=== PATIENT | female | born 2000 | race Caucasian/White ===

== ENCOUNTER 2024-01-13 08:11 | Emergency (ER) | payer BC, SELFPAY ==
--- NOTE | 2024-01-13 08:14 | ED.URI ---
HPI - URI/Sore Throat General Chief Complaint: Upper Respiratory Infection Stated Complaint: Sore Throat Time Seen by Provider: 01/13/24 08:14 Source: patient Mode of arrival: ambulatory Limitations: no limitations History of Present Illness HPI Narrative: Adela is a 23-year-old female patient presenting to the clinic today with complaints of sore throat x 3 days. History of strep and mono within the last year. Has seen ENT in the recent past for this. Denies any fever, chills, bodyaches, headache, nausea, or vomiting. MD elicited complaint: sore throat Related Data Home Medications Medication Instructions Recorded Confirmed No Home Medications 01/13/24 01/13/24 Allergies Allergy/AdvReac Type Severity Reaction Status Date / Time No Known Allergies Allergy Verified 01/13/24 08:21 Review of Systems Review of Systems: Pertinent positives per HPI. Patient denies any fever, chills, rash, headache, visual changes, dizziness, cough, shortness of breath, chest pain, palpitations, nausea, vomiting, diarrhea, constipation, abdominal pain, or any urinary issues. PMFSH Comments At the time of my signature, I reviewed and agree with the nursing past medical, surgical, social, and family history. There is no relevant family history pertinent to the patient complaint. Exam Narrative: General: Well-developed, well nourished, in no apparent distress Head: Normocephalic, atraumatic Eyes: Pupils equally round and reactive to light bilaterally, EOM intact, sclera and conjunctive clear, no discharge, lids normal Ears: TMs intact and clear, ear canals clear, no drainage, grossly hearing normal. Nose: Nares patent, no discharge, no inflammation, no sinus tenderness. Mouth: Oral pharynx red with bilateral tonsillar enlargement without exudate without lesions or masses, good dentition, MMM. Neck: Supple, trachea midline, no enlargement of anterior or posterior cervical nodes, no thyroid masses or goiter palpable. Cardio: Regular rate and rhythm, s1 and s2 normal, no murmur appreciated. Resp: Clear to auscultation bilaterally, no rhonchi, rales, wheezing or rubs Course Course Emergency Course: Portions of this record may have been created with voice recognition software. Level of Care: Express Care Visit Vital Signs Vital signs: Vital signs reviewed MDM - URI/Sore Throat MDM Narrative Medical decision making narrative: At the time of visit patient is resting comfortably on the exam table. Patient appears to be nontoxic. Labs: Strep test was obtained and negative in the clinic today. We will send strep for culture. [place] testing was also negative in the clinic today. Plan: I suspect patient has viral pharyngitis. Supportive measures were discussed with the patient and they voiced understanding discharge instructions and agrees to treatment plan. Return precautions reviewed Differential Diagnosis Differential diagnosis: Likely upper respiratory infection, viral infection, influenza, pharyngitis and other (Covid) Lab Data Labs: Lab Results 01/13/24 01/13/24 Range/Units 08:24 08:30 POC Monoscreen Pending Monoscreen Int Cont Solo Pending POC Grp A Strep Screen Pending Gp A Beta Strep Culture Pending Grp A Strep Int Pos QC Pending Discharge Plan Discharge Clinical Impression: Pharyngitis Qualifiers: Pharyngitis/tonsillitis etiology: unspecified etiology Qualified Code(s): J02.9 - Acute pharyngitis, unspecified Patient Disposition: Home, Self-Care Condition: Stable Instructions: Antibiotic Form, Pharyngitis (ED) Additional Instructions: Strep test was negative in the clinic today. We will send strep for culture if this comes back positive we will contact you in place you on antibiotics at that time. [place] test was negative in the clinic today. Increase fluids and stay well hydrated Tylenol/motrin for pain/fever Flonase and OTC antihistamines as directed
[2024-01-13 08:19] VITALS: BP 132/96; PULSE 105; RESP 16; TEMP 37.5; O2SAT 100
[2024-01-13 08:47] LABS: EDMONONEGPOS Negative
[2024-01-13 08:47] LABS: EDSTREPNEGPOS1 Presumptive Negative
== END 2024-01-13 08:48 | disposition home or self-care (01) ==
PROVIDERS: Emergency Provider Nurse Practitioner Family
DX: J02.9 Acute pharyngitis, unspecified (principal)
CPT/HCPCS: 36416; 86308; 87081; 87880; 99203; G0463

== ENCOUNTER 2024-02-29 17:06 | Emergency (ER) | payer BC, SELFPAY ==
--- NOTE | ~2024-02-29 | XR_ITS ---
EXAMINATION: XR chest 2V DATE: 02/29/2024 18:12 INDICATION: Chest tightness. TECHNIQUE: Frontal and lateral views of the chest were obtained. COMPARISON: None. FINDINGS: There is no pneumonia, pleural effusion, or pneumothorax. The heart size is normal. IMPRESSION: 1. No acute cardiopulmonary disease. Reviewed, dictated and finalized at location A.
[2024-02-29 17:19] VITALS: BP 127/73; PULSE 87; RESP 16; TEMP 36.6; O2SAT 99
--- NOTE | 2024-03-04 16:58 | ED.GENADULT ---
HPI - General Adult General Chief complaint: Nausea/Vomiting/Diarrhea Stated complaint: Dizzy/ Nausea Time Seen by Provider: 02/29/24 17:35 Source: patient, RN notes reviewed and old records reviewed Mode of arrival: ambulatory Limitations: no limitations History of Present Illness HPI narrative: 23-year-old female to Express Care for complaint of dizziness and nausea intermittently since . Patient reports acute increase in symptoms since waking this morning.Patient reports taking negative COVID test at home. Patient denies shortness of breath, chest pain, abdominal pain, urinary changes, bowel changes, cough, sore throat, ear pain, fever, allergies, pertinent medical history. Patient does not endorse attempting to treat at home. Patient able to tolerate fluids by mouth. Respirations even and nonlabored. Patient resting comfortably in exam room in no acute distress. Related Data Allergies Allergy/AdvReac Type Severity Reaction Status Date / Time No Known Allergies Allergy Verified 01/13/24 08:21 Review of Systems Review of Systems: All systems reviewed & are unremarkable except as noted in HPI and below Constitutional: Constitutional: Reports no additional constitutional complaints Eyes: Eyes: Reports no additional eye complaints ENT: Reports system reviewed and no additional complaints, except as documented Cardiovascular: Cardiovascular: Reports no additional cardiovascular complaints, Denies chest pain and Denies dyspnea Respiratory: Respiratory: Reports no additional respiratory complaints, Denies cough and Denies dyspnea Gastrointestinal: Gastrointestinal: Reports as per HPI and Reports nausea Musculoskeletal: Musculoskeletal: Reports no additional musculoskeletal complaints Neurologic: Reports as per HPI and Reports dizziness Psychiatric: Psychiatric: Reports no additional psychiatric complaints PMFSH Comments At the time of my signature, I reviewed and agree with the nursing past medical, surgical, social, and family history. There is no relevant family history pertinent to the patient complaint. Exam Const: General: cooperative, comfortable, no acute distress, well developed, alert, tired appearing, well groomed and well nourished Nutritional Appearance: well nourished Orientation/consciousness: patient oriented x3 Limitations: no limitations HENMT: Head: normal to inspection Ears: external ears normal Face/Nose/Sinus: Normal external nose present, Normal nares present, normal facial exam, No erythema and No edema Face and sinus: normal facial exam, no erythema and no edema Mouth: Yes Normal oral and palatal mucosa present Eyes: General: appearance normal, both eyes and all related structures Neck: Neck: normal visual inspection, full ROM and no meningeal signs Lymphatic: no lymphadenopathy noted and no lymphedema noted Chest: Chest palpation & inspection: normal inspection of the chest Resp: Effort & Inspection: normal respiratory effort and able to speak in complete sentences Auscultation: clear to auscultation bilaterally Cardio: Jugular venous distension: no JVD Rate: regular rate Rhythm: regular rhythm Back/Spine/Pelvis: Cervical Spine: cervical ROM normal Skin: General skin exam: normal color, no rashes or lesions noted and turgor normal Neuro: General: patient oriented x3, gait normal, moves all extremities and no meningeal signs Speech: normal speech Gait exam (Neuro): Normal gait present Extrem: General: normal to inspection, full ROM and capillary refill normal Psych: Appearance: grossly normal and well kempt Course Course Emergency Course: Some parts of this dictation were generated by voice recognition software and may contain typographical and/or grammatical inaccuracies. Level of Care: Express Care Visit Vital Signs Vital signs: Vital Signs Temperature 36.6 C 02/29/24 17:19 Pulse Rate 87 02/29/24 17:19 Respiratory Rate 16 02/29/24 17:19
== END 2024-02-29 18:38 | disposition home or self-care (01) ==
PROVIDERS: Emergency Provider Nurse Practitioner Family
DX: K52.9 Noninfective gastroenteritis and colitis, unspecified (principal); J32.9 Chronic sinusitis, unspecified
CPT/HCPCS: 71046; 99213; G0463

== ENCOUNTER 2024-04-07 12:41 | Emergency (ER) | payer BC, SELFPAY ==
[2024-04-07 12:50] VITALS: BP 113/78; PULSE 76; RESP 16; TEMP 36.5; O2SAT 100
--- NOTE | 2024-04-07 12:54 | ED.DENTAL ---
HPI - Dental/Oral General Chief complaint: Dental/Oral Stated complaint: dental pain Source: patient Mode of arrival: ambulatory History of Present Illness HPI Narrative: 23-year-old female presented for complaint of right lower wisdom tooth pain and associated gum swelling over the past few days. She endorses chronic dental pain due to wisdom teeth, and was scheduled to have them extracted a few months ago but the provider was not in network. She has been taking ibuprofen apply Orajel minimal relief. Complaint: tooth pain Related Data Allergies Allergy/AdvReac Type Severity Reaction Status Date / Time No Known Allergies Allergy Verified 01/13/24 08:21 Review of Systems Review of Systems: CONSTITUTIONAL: Denies body aches, fever, chills ENT: Denies rhinorrhea, congestion, sore throat, or otalgia. Reports dental pain CARDIOVASCULAR: Denies chest pain, palpitations RESPIRATORY: Denies cough or dyspnea. SKIN: Denies rash, itching, or wounds. MUSCULOSKELETAL: Denies myalgia. NEUROLOGIC: Denies headache, numbness, tingling, or weakness. PMFSH Comments At time of signature, I have reviewed and agree with nursing past medical, surgical, social and family history unless otherwise noted. Please see nursing chart for further information. There is no relevant family history pertinent to the presenting complaint Exam Narrative: GENERAL: Appears in pain; no acute distress. HEAD: Normocephalic, atraumatic. EYES: EOMI. No redness or drainage. Conjunctivae normal. ENT: Dental pain location of #32, surrounding gum swelling and erythema, tender. Minimal cheek swelling. Mucous membranes pink and moist. TMs normal bilaterally. Throat normal. no dysphagia, odynophagia, dysphonia, or dyspnea. No uvular deviation or soft palate edema. NECK: Normal AROM. No lymphadenopathy. no induration below mandible, no neck pain. CHEST: No respiratory distress. Clear to auscultation. HEART: Regular rate and rhythm. No murmur appreciated. SKIN: Warm, dry, no rash. Normal skin turgor. NEURO: No focal deficits. Alert and oriented x3. Gait steady. Course Course Emergency Course: Patient is aware of diagnosis, understands and agrees to treatment plan. Anticipatory guidance given. Patient agrees to follow-up as directed and is aware of reasons to seek care at the emergency department. Portions of this record may have been created with voice recognition software Level of Care: Express Care Visit MDM - Dental/Oral MDM Narrative Medical decision making narrative: Patients pain and complaint coupled with physical findings are consistent with dentalgia. There are no focal signs of space occupying lesions that are compromising to the airway;Patient is non-toxic appearing. The floor of the mouth is soft with no signs of Francisco's Angina; Patient is without trismus or drooling and able to swallow secretions. Discussed physical exam findings. Reviewed Rx. Advised supportive measures and signs/symptoms to go to the ER. Pt is appropriate for outpt treatment and f/u. Differential Diagnosis Differential diagnosis: Likely gingival abscess, dental caries, toothache, dental abscess, fracture of tooth and aphthous ulcer Discharge Plan Discharge Clinical Impression: Toothache Patient Disposition: Home, Self-Care Condition: Stable Instructions: Antibiotic Form, Toothache (ED) Additional Instructions: Take antibiotic as directed May apply heat or ice to the face Gentle brushing and flossing. Rinse mouth with warm salt water at least 2 times a day. Alternate Tylenol and ibuprofen as needed for pain Follow-up with the dentist/oral surgeon as soon as possible Go to the ER for worsening symptoms or concerns Prescriptions: New ibuprofen 800 mg tablet 800 mg PO TID PRN (Reason: pain) Qty: 15 0RF lidocaine HCl [Lidocaine Viscous] 2 % solution 1 applic mucous membrane TID PRN (Reason: pain) Qty: 100 0RF Rx Ins
== END 2024-04-07 13:12 | disposition home or self-care (01) ==
PROVIDERS: Emergency Provider Nurse Practitioner Family
DX: K08.89 Other specified disorders of teeth and supporting structures (principal)
CPT/HCPCS: 99213; G0463

== ENCOUNTER 2024-04-20 14:12 | Emergency (ER) | payer BC, SELFPAY ==
[2024-04-20 14:32] VITALS: BP 127/94; PULSE 70; RESP 14; TEMP 36.8; O2SAT 98
--- NOTE | 2024-04-20 14:32 | ED.FEMALEGU ---
HPI - Female Genitourinary General Chief complaint: Urogenital-Female Stated complaint: yeast infection symptoms Source: patient and RN notes reviewed Mode of arrival: ambulatory Limitations: no limitations History of Present Illness HPI Narrative: 24 y/o female presented for c/o vaginal irritation, itching and burning sensation x2 days. Endorses white discharge. Not taking anything for symptoms. Recently taking Augmentin for dental infection on 04/07 and has been taking it intermittently since starting it. Denies concern for STD. Related Data Home Medications Medication Instructions Recorded Confirmed levonorgestrel 17.5 mcg/24 hr (up 1 device intrauterine ONCE 04/20/24 04/20/24 to 5 yrs) 19.5mg intrauterine device (Kyleena) Allergies Allergy/AdvReac Type Severity Reaction Status Date / Time No Known Allergies Allergy Verified 04/20/24 14:42 Review of Systems Review of Systems: CONSTITUTIONAL: Denies body aches, fever, chills, or sweats. CARDIOVASCULAR: Denies chest pain, palpitations, or edema. RESPIRATORY: Denies cough or dyspnea. GASTROINTESTINAL: Denies abdominal pain, nausea, vomiting, or diarrhea. GENITOURINARY: Reports dysuria, vaginal itching and discharge denies frequency, urgency, hematuria, flank pain SKIN: Denies rash, itching, or wounds. MUSCULOSKELETAL: Denies back pain or myalgia. PMFSH Comments At time of signature, I have reviewed and agree with nursing past medical, surgical, social and family history unless otherwise noted. Please see nursing chart for further information. There is no relevant family history pertinent to the presenting complaint Exam Narrative: GENERAL: Well-appearing ENT: Mucous membranes pink and moist. CHEST: No respiratory distress. Clear to auscultation. HEART: Regular rate and rhythm. ABDOMEN: Soft, nontender, nondistended, normal active bowel sounds. No CVA tenderness SKIN: Warm, dry NEURO: No focal deficits. Alert and oriented x3. Gait steady. PSYCH: Normal affect. Course Course Emergency Course: Patient is aware of diagnosis, understands and agrees to treatment plan. Anticipatory guidance given. Patient agrees to follow-up as directed and is aware of reasons to seek care at the emergency department. Portions of this record may have been created with voice recognition software Level of Care: Express Care Visit Vital Signs Vital signs: Reviewed MDM - Female Genitourinary MDM Narrative Medical decision making narrative: Discussed urine dip. Pt would like treatment for yeast at this time, if no improvement she will f/u with her obgyn. Advised supportive measures and signs/symptoms to go to the ER. Pt is appropriate for outpt treatment and f/u. Differential Diagnosis Differential diagnosis: Likely urinary tract infection, bacterial vaginosis, trichomoniasis, vaginitis and cystitis Discharge Plan Discharge Clinical Impression: Vaginitis Patient Disposition: Home, Self-Care Condition: Stable Instructions: Antibiotic Form, Yeast Infection (ED) Additional Instructions: Keep skin clean, dry and well aerated Wear cotton underpants. Double rinse underpants after washing. Avoid fabric softeners for underpants and swimsuits. Avoid tights, leotards, leggings. Wearing loose fitting pants/skirts allow air to circulate. Avoid wearing wet swimsuits for long periods of time. Avoid bubble baths or perfumed soap Rinse genital area well and pat dry gently Cool compresses may help relieve the redness/irritation. Aquaphor, vaseline or A&D ointment may help protect the skin. Take medication as directed Follow up with your primary care provider as needed in 1 week Go to the ER for worsening symptoms or concerns Prescriptions: New fluconazole 150 mg tablet 150 mg PO DAILY Qty: 2 0RF No Action Kyleena 17.5 mcg/24 hr (5 yrs) 19.5 mg Intrauterine Device 1 device INTRAUTERINE ONCE Rx Instructions: as a single dose Follow-up/Referrals: UNKNOWN,DOCTOR [Primary Care Provider] - Time of Disposition: 14:48
[2024-04-20 14:45] LABS: EDUAAPPEAR Clear; EDUABILI Negative (Negative); EDUABLOOD Trace (Negative); EDUACOLOR1 Yellow; EDUAGLUCOSE Negative (Negative); EDUAKETONE Negative (Negative); EDUALEUKO Trace (Negative); EDUANITRATE Negative (Negative); EDUAPH 5.5; EDUAPROTEIN Negative (Negative); EDUAUROBILI 0.2
== END 2024-04-20 14:57 | disposition home or self-care (01) ==
PROVIDERS: Emergency Provider Nurse Practitioner Family
DX: N76.0 Acute vaginitis (principal)
CPT/HCPCS: 81003; 87086; 99213; G0463

== ENCOUNTER 2024-04-28 01:55 | Emergency (ER) | payer BC, SELFPAY ==
[2024-04-28 01:58] VITALS: BP 139/97; PULSE 70; RESP 18; TEMP 36.8; O2SAT 100
[2024-04-28] MEDS: LORATADINE 10 MG TABLET PO (03:24)
[2024-04-28] MEDS: predniSONE 20 MG TABLET 40 MG PO (03:25)
[2024-04-28 03:31] VITALS: BP 128/90; PULSE 67; RESP 16; O2SAT 97
--- NOTE | 2024-04-28 04:02 | ED.SKABFB ---
HPI - Skin/Abscess/Foreign Bdy General Chief complaint: Skin/Abscess/Foreign Body Stated complaint: rash Time Seen by Provider: 04/28/24 03:00 History of Present Illness HPI narrative: patient presents here with itchy rash covering her body, ongoing for last 3 days, unsure of cause but she did start and antifungal medicine a week ago however she is already finish it, if she did start a new antibiotic 2 days ago however the rash began before then. She did sleep with the family dog though no one else in the family has symptoms. No throat or tongue where face swelling, nausea or vomiting. Related Data Home Medications Medication Instructions Recorded Confirmed levonorgestrel 17.5 mcg/24 hr (up 1 device intrauterine ONCE 04/20/24 04/20/24 to 5 yrs) 19.5mg intrauterine device (Kyleena) Allergies Allergy/AdvReac Type Severity Reaction Status Date / Time No Known Allergies Allergy Verified 04/20/24 14:42 Review of Systems Review of Systems: All systems reviewed & are unremarkable except as noted in HPI and below Exam Narrative: EXAMINATION OF ORGAN SYSTEMS/BODY AREAS: Constitutional: Vital signs per nursing GENERAL:[No acute distress, non-toxic appearing.] HEAD: Normal with no signs of head trauma. EYES: EOMI, conjunctiva normal ENT: Hearing grossly intact LUNGS: Nonlabored breathing. HEART: [Regular rate and rhythm] ABD: [Soft], [nontender to palpation] EXT: Normal range of motion SKIN: Itchy raised rash all over body, With some excoriations NEURO: [Alert and oriented x 3. No gross focal sensory or strength deficits.] PSYCH: Normal affect Course Vital Signs Vital signs: Vital Signs Temperature 98.3 F 04/28/24 01:58 Pulse Rate 70 04/28/24 01:58 Respiratory Rate 18 04/28/24 01:58 Blood Pressure 139/97 H 04/28/24 01:58 Pulse Oximetry 100 04/28/24 01:58 Oxygen Delivery Room Air 04/28/24 01:58 Temperature 98.3 F 04/28/24 01:58 Pulse Rate 67 04/28/24 03:31 Respiratory Rate 16 04/28/24 03:31 Blood Pressure 128/90 04/28/24 03:31 Pulse Oximetry 97 04/28/24 03:31 Oxygen Delivery Room Air 04/28/24 01:58 MDM - Skin/Abscess/Foreign Bdy MDM Narrative Medical decision making narrative: patient presents here with itchy rash, does appear consistent with possible contact dermatitis versus other allergic reaction, she has no other symptoms for me to be concerned about anaphylaxis, given the possible exposure to poison dilcia I will put her on a long steroid taper, I did let her know that if after the 1st 5-6 days she feels better she can try stopping the steroids but if the rash returns she can continue with the 2 week long course. Patient agreeable to this plan. Antihistamines prescribed. Follow-up and return precautions provided. Discharge Plan Discharge Clinical Impression: Contact dermatitis Patient Disposition: Home, Self-Care Condition: Stable Instructions: Antibiotic Form, Contact Dermatitis (ED) Additional Instructions: Please follow up with your doctor; you can always return for any further issues. Prescriptions: New loratadine 10 mg tablet 10 mg PO DAILY Qty: 30 0RF prednisone 10 mg tablet See Taper PO DAILY 15 Days Qty: 45 0RF Taper: Prednisone Taper from 50 mg;15 days 50 mg DAILY for 3 Days and 0 Hour 40 mg DAILY for 3 Days and 0 Hour 30 mg DAILY for 3 Days and 0 Hour 20 mg DAILY for 3 Days and 0 Hour 10 mg DAILY for 3 Days and 0 Hour No Action Kyleena 17.5 mcg/24 hr (5 yrs) 19.5 mg Intrauterine Device 1 device INTRAUTERINE ONCE Rx Instructions: as a single dose fluconazole 150 mg tablet 150 mg PO DAILY Qty: 2 0RF Follow-up/Referrals: Josee Lau MD [Emergency Provider] - Priyanka Byrd MD [Physician] - 3 Days UNKNOWN,DOCTOR [Primary Care Provider] - Stand Alone Forms: Work/School Release IP
== END 2024-04-28 03:31 | disposition home or self-care (01) ==
PROVIDERS: Emergency Provider Emergency Medicine
DX: L25.9 Unspecified contact dermatitis, unspecified cause (principal)
CPT/HCPCS: 99283; A9270; J7512

== ENCOUNTER 2024-12-21 09:01 | Emergency (ER) | payer BC, SELFPAY ==
--- NOTE | 2024-12-21 09:13 | ED_ITS ---
HPI - Nausea/Vomiting/Diarrhea General Chief complaint: Nausea/Vomiting/Diarrhea Stated complaint: Diarrhea/Nausea Time Seen by Provider: 12/21/24 09:05 Source: patient Mode of arrival: ambulatory Limitations: no limitations History of Present Illness HPI Narrative: Patient is a 24 year old female who presents to the clinic with complaints of diarrhea x 1 week and nausea and vomiting for 3 days. She states that [place] She did not use sunscreen and got a sunburn on her back. She states that after her sunburn she developed the nausea and vomiting. Denies any shortness of breath, abdominal pain, fevers, body aches, or sore throat. Related Data Home Medications ?Medication ?Instructions ?Recorded ?Confirmed ?Last Taken ?Type levonorgestrel 17.5 mcg/24 hr (up 1 device intrauterine ONCE 04/20/24 04/20/24 Unknown History to 5 yrs) 19.5mg intrauterine device (Kyleena) Allergies Allergy/AdvReac Type Severity Reaction Status Date / Time No Known Allergies Allergy Verified 12/21/24 09:24 Review of Systems Review of Systems: CONSTITUTIONAL: Denies body aches, fever, chills, or sweats. EYES: Denies visual changes, redness, or discharge. ENT: Denies rhinorrhea, congestion, sore throat, or otalgia. CARDIOVASCULAR: Denies chest pain, palpitations, or edema. RESPIRATORY: Denies cough or dyspnea. GASTROINTESTINAL: Reports nausea, vomiting, and diarrhea. Denies abdominal pain or CVA Tenderness. GENITOURINARY: Denies dysuria or hematuria. SKIN: Denies rash, itching, or wounds. MUSCULOSKELETAL: Denies back pain, joint pain, or myalgia. NEUROLOGIC: Denies headache, numbness, tingling, or weakness. PSYCH: Denies depression or anxiety. All systems reviewed & are unremarkable except as noted in HPI and below PMFSH Comments At time of signature, I have reviewed and agree with nursing past medical, surgical, social and family history unless otherwise noted. Please see nursing chart for further information. There is no relevant family history pertinent to the presenting complaint. Exam Narrative: GENERAL: Well-appearing, well-nourished, and in no acute distress. HEAD: Normocephalic, atraumatic. EYES: PERRLA, conjunctivae clear, and EOMI. ENT: Mucous membranes moist. NECK: Supple. No lymphadenopathy CHEST: Speaks in full sentences. No respiratory distress. HEART: Regular rate and rhythm. ABDOMEN: Soft, flat, nondistended. No guarding, rebound tenderness, or rigid. No pulsatile masses. Bowel sounds x4. Negative Park?s sign. No periumbilical tenderness. No Supra pubic tenderness or distension. Good femoral pulses bilaterally. No scars or surface trauma. SKIN: Warm, dry, no rash. NEURO: Alert and oriented x3. PSYCH: Normal mood and affect. Course Course Level of Care: Express Care Visit Vital Signs Vital signs: reviewed. MDM - Nausea/Vomiting/Diarrhea MDM Narrative Medical decision making narrative: Discussed physical exam findings. Zofran prescription given. Advised supportive measures and signs/symptoms to go to the ER. Pt is appropriate for outpatient treatment and follow up. Differential Diagnosis Differential diagnosis: Likely food poisoning, gastroenteritis, dehydration and other (sun poisoning ) Critical Care Time Critical Care Time Critical Care Time: No Discharge Plan Discharge Clinical Impression: Nausea & vomiting Qualifiers: Vomiting type: unspecified Qualified Code(s): R11.2 - Nausea with vomiting, unspecified Diarrhea Qualifiers: Diarrhea type: unspecified type Qualified Code(s): R19.7 - Diarrhea, unspecified Patient Disposition: Home Condition: Stable Instructions: Acute Nausea and Vomiting (ED), Acute Diarrhea (ED) Additional Instructions: Take Zofran as prescribed. Stay hydrated. Take small sips of fluid containing electrolytes frequently. Clear liquids (broth, jello, tea, sprite, pedialyte) Spink foods (bananas, rice, applesauce, toast, crackers) Avoid fatty, greasy, fried or spicy foods. Limit dairy until symptoms are improved. [id number] Imodium according to package directions Recommend probiotic such as align or lactobacillus to help with symptoms. If diarrhea persist more than 2 weeks, stool studies would be recommended. You should go to the hospital if you experience persistent nausea and vomiting that does not resolve and does not allow you to tolerate any food or fluids, fevers, increasing abdominal pain, persistent diarrhea, dizziness, fainting, or for any other concerns. Follow up with primary care provider in 3 days. Patient Language: Palestinian Prescriptions: New ondansetron 4 mg tablet,disintegrating 4 mg PO Q8H PRN (Reason: nausea and vomiting) Qty: 14 0RF No Action Kyleena 17.5 mcg/24 hr (5 yrs) 19.5 mg Intrauterine Device 1 device INTRAUTERINE ONCE Rx Instructions: as a single dose fluconazole 150 mg tablet 150 mg PO DAILY Qty: 2 0RF loratadine 10 mg tablet 10 mg PO DAILY Qty: 30 0RF prednisone 10 mg tablet See Taper PO DAILY 15 Days Qty: 45 0RF Taper: Prednisone Taper from 50 mg;15 days 50 mg DAILY for 3 Days and 0 Hour 40 mg DAILY for 3 Days and 0 Hour 30 mg DAILY for 3 Days and 0 Hour 20 mg DAILY for 3 Days and 0 Hour 10 mg DAILY for 3 Days and 0 Hour Follow-up/Referrals: PHYSICIAN,PUBLIC HEALTH PROFESSOR [Primary Care Provider] - Time of Disposition: 09:30
[2024-12-21 09:18] VITALS: BP 128/81; PULSE 98; RESP 16; TEMP 37; O2SAT 100
== END 2024-12-21 09:35 | disposition home or self-care (01) ==
DX: R11.2 Nausea with vomiting, unspecified (principal); R19.7 Diarrhea, unspecified
CPT/HCPCS: 99213; G0463

== ENCOUNTER 2025-03-30 14:56 | Emergency (ER) | payer BC, SELFPAY ==
--- NOTE | 2025-03-30 15:06 | ED.URI ---
HPI - URI/Sore Throat General Chief Complaint: Upper Respiratory Infection Stated Complaint: flu symptoms Time Seen by Provider: 03/30/25 15:06 Source: patient, RN notes reviewed and old records reviewed Mode of arrival: ambulatory Limitations: no limitations History of Present Illness HPI Narrative: 24 year old female who presents to [facility] with complaints of 2 day history of feeling poorly with sinus congestion and drainage, sore throat, headache and body aches. She states that her boyfriennd tested positive for Influenza A today. She states that she haw been taking Tylenol Ibuprofen and also Aleve for her symptoms without resolution, reports no known fevers, nausea, vomiting, or diarrhea. MD elicited complaint: sore throat, rhinorrhea, nasal congestion and other (body aches and headache) Onset (ago): day(s) (2) Consistency: constant Severity: moderate Pain scale (0-10): 4 Able to tolerate fluids by mouth: Yes Treatments prior to arrival: acetaminophen, ibuprofen and other (Aleve) Related Data Home Medications ?Medication ?Instructions ?Recorded ?Confirmed ?Last Taken ?Type levonorgestrel 17.5 mcg/24 hr (up 1 device intrauterine ONCE 04/20/24 04/20/24 Unknown History to 5 yrs) 19.5mg intrauterine device (Kyleena) Allergies Allergy/AdvReac Type Severity Reaction Status Date / Time No Known Allergies Allergy Verified 03/30/25 15:04 Review of Systems Review of Systems: CONSTITUTIONAL: reports malaise, report no chills, sweats, or fever. EYES: Denies visual changes, redness, or discharge. ENT: Reports rhinorrhea, congestion, sinus pain,no otalgia and positive sore throat. CARDIOVASCULAR: Denies chest pain, palpitations, or edema. RESPIRATORY: Reports no acute cough.? Denies dyspnea. GASTROINTESTINAL: Denies abdominal pain, nausea, vomiting, diarrhea SKIN: Denies rash or itching. MUSCULOSKELETAL: Reports myalgia. NEUROLOGIC: Reports headache. All systems reviewed & are unremarkable except as noted in HPI and below PMFSH Social History Social History (Updated 03/31/25 @ 19:12 by Rica Craft NP) Smoking status: Never smoker Alcohol intake: current Alcohol use details: social Substance use type: does not use Gender identity (if verbalized by the patient): Female Comments At time of signature, agree with nursing past medical, surgical, social and family history. There is no relevant family history pertinent to the presenting complaint Exam Narrative: GENERAL: Well-appearing, well-nourished, and in no acute distress. HEAD: Normocephalic EYES: PERRLA, conjunctivae clear ENT: Nares clear, turbinates edematous and erythematous, clear discharge. Mucous membranes moist. TM pearly wagner with dull light reflex bilaterally; no tragal tenderness. Oropharynx erythematous without lesions. Tonsils not enlarged and without exudate, no drooling, no hoarseness, no trismus, uvula midline.post nasal drainage NECK: Supple. No lymphadenopathy CHEST: Clear to auscultation, breath sounds equal. No wheezing, rhonchi, rales, or stridor. No respiratory distress, speaks in full sentences.SAO2 100% on room air HEART: Regular rate and rhythm. No murmur heard. SKIN: Warm, dry, no rash. NEURO: Alert and oriented x3. reports headache discomfort PSYCH: Normal mood and affect Course Course Emergency Course: Patient is aware of diagnosis, understands and agrees to treatment plan.? Anticipatory guidance given.? Patient agrees to follow-up as directed and is aware of reasons to seek care at the emergency department. Portions of this record may have been created with voice recognition software Level of Care: Express Care Visit Vital Signs Vital signs: Vital Signs Temperature 36.6 C 03/30/25 15:07 Pulse Rate 66 03/30/25 15:07 Respiratory Rate 16 03/30/25 15:07 Blood Pressure 124/78 03/30/25 15:07 Pulse Oximetry 100 03/30/25 15:07 Temperature 36.6 C 03/30/25 15:07 Pulse Rate 66 03/30/25 15:07 Respiratory Rate 16 03/30/25 15:07 Blood Pressure 124/78 03/30/25 15:07 Pulse Oximetry 100 03/30/25 15:07 Reviewed MDM - URI/Sore Throat MDM Narrative Medical decision making narrative: Differential diagnosis considered: Aguilar virus, strep pharyngitis, allergic rhinitis, upper respiratory tract infection, sinusitis, rhinosinusitis, nasopharyngitis. viral pharyngitis, otitis media, otitis externa, pneumonia, bronchitis, viral cough syndrome, viral syndrome, and influenza.? Exam findings show no acute concerns or changes; patient is non-toxic appearing and is in no distress.? Patient is appropriate for outpatient treatment and follow-up. Differential Diagnosis Differential diagnosis: Likely upper respiratory infection, sinusitis, viral infection, influenza, pharyngitis and other (strep pharyngitis, COVID) Medical Records Attestation: I reviewed the patient's medical records. Lab Data Attestation: I reviewed the patient's lab results. Lab results narrative: strep screen negative, strep culture sent, INfluenza A&B negative, Covid Neg Labs: Lab Results 03/30/25 Range/Units 15:18 POC Influenza A Ag Negative (Negative) POC Influenza B Ag Negative (Negative) POC SARS CoV-2 Ag Negative (Negative) POC Grp A Strep Screen Negative (Negative) reviewed Critical Care Time Critical Care Time Critical Care Time: No Discharge Plan Discharge Clinical Impression: Influenza-like symptoms, Exposure to influenza Patient Disposition: Home Condition: Stable Instructions: Antibiotic Form, Viral Syndrome (ED) Additional Instructions: Increase fluids especially juices and water [id number] cough and cold medicine of your choice for your symptoms Zyrtec Claritin or Priscilla daily may include Sudafed Tylenol or ibuprofen for any fever pain for package directions Salt water gargles, throat lozenges or throat sprays as desired If your symptoms persist, change or worsen significantly before you can contact your personal physician then please, without delay, go to the emergency department for further evaluation. Follow-up with PCP in 7-10 days or sooner if needed recommend retest tomorrow Patient Language: Russian Prescriptions: No Action Kyleena 17.5 mcg/24 hr (5 yrs) 19.5 mg Intrauterine Device 1 device INTRAUTERINE ONCE Rx Instructions: as a single dose Follow-up/Referrals: UNKNOWN,DOCTOR [Primary Care Provider] Stand Alone Forms: Work/School Release IP Time of Disposition: 15:30 Quality Altaf Coma Scale Eyes: Open Verbal: Oriented and Alert Motor: Follows Commands Cactus Coma Total Score: 15
[2025-03-30 15:07] VITALS: BP 124/78; PULSE 66; RESP 16; TEMP 36.6; O2SAT 100
[2025-03-30 15:20] LABS: EDCOVIDSCREEN Negative (Negative); EDINFLUASCREEN Negative (Negative); EDINFLUBSCREEN Negative (Negative); EDSTREPNEGPOS1 Negative (Negative)
== END 2025-03-30 15:41 | disposition home or self-care (01) ==
PROVIDERS: Emergency Provider Registered Nurse
DX: J11.1 Influenza due to unidentified influenza virus with other respiratory manifestations (principal); Z20.822 Contact with and (suspected) exposure to COVID-19
CPT/HCPCS: 87081; 87426; 87804; 87880; 99213; G0463